=== PATIENT | female | born 2000 | race Caucasian/White ===

== ENCOUNTER 2022-05-27 07:55 | Outpatient (CLI) | payer BC, MEDICAID, SELFPAY ==
--- NOTE | 2022-05-27 08:04 | US_ITS ---
WS: [id number] EARLY OBSTETRICAL ULTRASOUND (<14 WEEKS). HISTORY: UNSURE OF LMP COMPARISON: None available. Single intrauterine gestational sac is identified. Cardiac activity at 157 BPM. Hood-rump length giancarlo sures 3.8 cm which corresponds to a gestation of 10w5d. Normal-appearing yolk sac and amnion demonstr ated. No subchorionic hemorrhage. No free fluid. Normal size ovaries with no mass. Small RIGHT ovarian follicle. Cervix is closed measuring 3.1 cm in length. US/US OB <= 14 weeks fetus [id number] IMPRESSION: 1. Single intrauterine gestation of 10 weeks 5 days with an EDC of 12/18/2022. 2. Normal cardiac activity.
== END 2022-05-27 07:56 | disposition home or self-care (01) ==
LOC: RAD 07:55
PROVIDERS: PCP Family Medicine; Visit Provider Family Medicine
DX: Z36.87 Encounter for antenatal screening for uncertain dates (principal)
CPT/HCPCS: 76801

== ENCOUNTER 2022-10-14 10:42 | Outpatient (CLI) | payer BC, MEDICAID, SELFPAY ==
[2022-10-14 10:42] VITALS: BMI 38.0
[2022-10-14 11:01] VITALS: BP 121/56; PULSE 67
[2022-10-14 11:15] VITALS: RESP 18; TEMP 36.6
--- NOTE | 2022-10-14 11:25 | US_ITS ---
WS: [id number] BIOPHYSICAL PROFILE HISTORY: Non reactive NST COMPARISON: 07/23/2022 Cardiac activity: 141 bpm. Cervix: Obscured by the head. Placenta: Anterior, no previa or abruption. Placenta grade: 1 Parameters are as follows: Breathin Movement: 2 Tone: 2 Fluid volume: 2 Amniotic fluid: Deepest single vertical pocket: 3.1 cm. US/US OB [place] NST [address]35 IMPRESSION: 1. Biophysical profile score: 8/8. 2. Normal amniotic fluid.
[2022-10-14 11:28] VITALS: BP 109/58; PULSE 73
[2022-10-14 11:43] VITALS: BP 107/58; PULSE 64
[2022-10-14 11:58] VITALS: BP 113/58; PULSE 77
[2022-10-14 12:13] VITALS: BP 116/64; PULSE 75
== END 2022-10-14 12:20 | disposition home or self-care (01) ==
LOC: OPOB 10:49 → OBGYN 10:50
PROVIDERS: PCP Family Medicine; Visit Provider Family Medicine
DX: O26.899 Other specified pregnancy related conditions, unspecified trimester (principal); Z3A.00 Weeks of gestation of pregnancy not specified
CPT/HCPCS: 59025; 76819

== ENCOUNTER 2022-11-11 12:09 | Outpatient (CLI) | payer BC, MEDICAID, SELFPAY ==
[2022-11-11 12:09] VITALS: BMI 38.9
[2022-11-11 12:22] VITALS: BP 135/65; PULSE 90
[2022-11-11 12:37] VITALS: BP 141/68; PULSE 87
[2022-11-11 12:57] VITALS: BP 129/60; PULSE 80
== END 2022-11-11 13:10 | disposition home or self-care (01) ==
LOC: OPOB 12:15 → OBGYN 12:16
PROVIDERS: PCP Family Medicine; Visit Provider Family Medicine
DX: O36.8390 Maternal care for abnormalities of the fetal heart rate or rhythm, unspecified trimester, not applicable or unspecified (principal); Z3A.00 Weeks of gestation of pregnancy not specified
CPT/HCPCS: 59025; 99211

== ENCOUNTER 2022-12-11 12:14 | Inpatient (IN) | payer BC, MEDICAID, SELFPAY ==
[2022-11-11 12:19] VITALS: RESP 18
[2022-12-11] VITALS (71 sets, daily range): BP systolic 103–159; BP diastolic 55–121; PULSE 67–104; RESP 16; TEMP 36.6–36.9; O2SAT 99–100; BMI 39.4
[2022-12-11] MEDS: oxytocin 30 UNIT/500 ML BAG IV (10:44)
[2022-12-11] MEDS: dextrose 5%-lactated ringers 1,000 ML 125 ML IV ×2 (10:44→23:44)
[2022-12-11 10:54] LABS: Amphetamines Screen Urine Negative (Negative); Cocaine Screen Urine Negative (Negative); Opiate Screen Urine Negative (Negative); PCP Screen Urine Negative (Negative); THC Screen Urine Positive (Negative)
[2022-12-11 10:55] LABS: Barbiturates Screen Urine Negative (Negative); Benzodiazepines Screen Urine Negative (Negative)
[2022-12-11 11:02] LABS: Basophils % 0.5 %; Eosinophils % 0.2 %; Hematocrit 35.3 % (37.0-47.0); Hemoglobin 11.4 g/dL (11.5-15.3); Lymphocytes # 1.6 10^3/uL (0.8-4.8); Lymphocytes % 17.7 %; Mean Corpuscular HGB Conc 32.3 g/dL (30.0-36.0); Mean Corpuscular Hemoglobin 27.7 pg (28.0-34.0); Mean Corpuscular Volume 85.7 fl (81-99); Mean Platelet Volume 10.5 fL (7.4-10.4); Monocytes # 0.9 10^3/uL (0.2-0.9); Monocytes % 9.9 %; Neutrophils # 6.13 10^3/uL (1.8-7.7); Neutrophils % 70.1 %; Nucleated Red Blood Cells % 0 %; Platelet Count 290 10^3/cmm (130-400); Red Blood Count 4.12 10^6/uL (4.1-5.3); Red Cell Distribution Width 13.3 % (12.1-15.1); White Blood Count 8.8 10^3/uL (4.0-10.0)
[2022-12-11] MEDS: lactated ringers 1,000 ML 999 ML IV ×2 (16:37→17:39)
--- NOTE | 2022-12-11 17:03 | PM.OPHPUD ---
Labor & Delivery H&P Update Date of Procedure: December 11, 2022 Date H&P Performed: 12/09/22 Admission Diagnosis: at 39w 6 days gestation Elective Induction
--- NOTE | 2022-12-11 17:04 | PM.DELIVERY ---
Delivery Note: Date of delivery: December 11, 2022 Pre-Delivery Course: The patient is up to 20 units of Pitocin and feeling the contractions. Sterile vaginal exam was performed and she was found to be 2 to 3 cm good 60% effaced and -3 station but the infant's head was very well applied. Rupture membranes was performed using an amnio hook and a scant amount of clear fluid was noted. Patient tolerated the procedure well. heart tones are 130s moderate variability positive accelerations no decelerations History History History 0 Term Miscarriages/Ectopic Living Children Coding Level of Care Code Acute Code for Chg Fwd
--- NOTE | 2022-12-11 17:19 | ANES.PREANE2 ---
Pre-Anesthetic Assessment Height/Weight: Height 1.73 m Weight 117.48 kg Temp Pulse Resp BP O2 Del Method 97.9 F 74 16 124/82 12/11/22 14:48 12/11/22 17:16 12/11/22 16:00 12/11/22 17:16 12/11/22 09:25 Familial anesthetic complications: No history of anesthesia Was Beta Aruna taken within 24 hours: N/A Was Clonidine taken within 24 hours: N/A Social No alcohol and No tobacco (Marijuana) Exam alert, oriented x 3, clear to auscultation bilaterally and regular rate & rhythm Airway Submandibular: within normal limits Cervical ROM: within normal limits Mallampati: Class II Dentition: full History/ROS No significant history except as noted and No significant complaints Pulmonary None reported CV/HEM Atrial Fibrillation (Intermittent) None reported Hepatic None reported GI Gastroesophageal Reflux Disease Metabolic Morbid Obesity [facility] Lower Back Pain Neuropsych Anxiety and Depression Anesthetic Plan ASA status: 2 Anesthesia: Anesthesia Evaluation and Regional (specify below) (Epidural) Medications/Allergies Home Medications Medication Instructions Recorded Confirmed Last Taken Type 1 tab PO DAILY 10/14/22 11/11/22 11/10/22 History Allergies Allergy/AdvReac Type Severity Reaction Status Date / Time pineapple Allergy ALGY-Swell Verified 10/14/22 11:41 Lip/Tongue/Throat Current Medications Generic Name Dose Route Start Last Admin Trade Name Freq PRN Reason Stop Dose Admin Oxytocin 30 unit in 500 mls @ 1 mls/hr 12/11/22 10:00 12/11/22 13:15 Pitocin IV 20 milliunit/min .Q24H MAGGIE 20 mls/hr Titration Protocol 1 MILLIUNIT/MIN Dextrose/Lactated Ringer's 1,000 mls @ 125 mls/hr 12/11/22 10:00 12/11/22 16:41 Dextrose 5%-Lactated Ringers IV 0 mls/hr .Q8H MAGGIE Infusion Lactated Ringer's 1,000 mls @ 999 mls/hr 12/11/22 16:33 12/11/22 16:37 Lactated Ringers IV 999 mls/hr .Q1H1M PRN Administration See label comments PFSH Anesthesia Family History Grandmother Cancer Family/Other Psychiatric illness Whole family per patient Denies family history of Diabetes CAD (coronary artery disease) Clotting disorder Dementia Hyperlipidemia Chronic kidney disease (CKD) Suicide Anesthesia complication Bleeding disorder Family history of premature coronary artery disease Lung disease Hypertension Stroke Social History (Updated 12/21/20 @ 09:35 by Keshia Burnette RN) Smoking and tobacco status: current every day smoker cigarettes [ Other cigarette details: 6 cigarettes/day ] Alcohol intake: current Alcohol intake frequency: holidays/special occasions only Alcohol type: beer, wine and hard liquor Other details last substance use: 2019- last smoked marijuana Female Reproductive History : 1 Data Anesthesia 12/11/22 10:00 Short CBC 12/11/22 Range/Units 10:00 WBC 8.8 (4.0-10.0) 10^3/uL Hgb 11.4 L (11.5-15.3) g/dL Hct 35.3 L (37.0-47.0) % MCV 85.7 (81-99) fl Plt Count 290 (130-400) 10^3/cmm Neut % (Auto) 70.1 % Neut # (Auto) 6.13 (1.8-7.7) 10^3/uL Cardiac Studies: No Data to Display
--- NOTE | 2022-12-11 18:07 | ANES.PROC ---
Anesthesia Procedures Procedure/Date: 12/11/22 Epidural: Time Out Performed: Yes Consents Signed: Procedure Consent and NPO Consent Consent: requested by attending/covering physician, from patient, risks and benefits reviewed and patient agrees to proceed Lumbar Level: L3-L4 Epidural position: sitting Epidural procedure: sterile prep of area (betadine), 1% lidocaine to numb the area (3 mLs), neg for paresthesia, test dose given, 1.5% xylocaine 1:200k epi (3 mLs/ 2 mLs), 0.2% Ropivacaine bolus ml (5 mLs), placed PCEA, no systemic response, sterile dressing applied, L.U.D. no apparent complications and 0.2% Ropiavacaine @ mls/hr (13) Additional Comments: LUZMARIA at 7cm, catheter placed at 12cm. Attempt x 1
[2022-12-12] VITALS (26 sets, daily range): BP systolic 111–152; BP diastolic 55–87; PULSE 75–106; RESP 16–18; TEMP 36.7; O2SAT 97–98
[2022-12-12] MEDS: ondansetron 2 mg/ML SDV 2 mL 4 MG IVP (01:12)
[2022-12-12] MEDS: miSOPROStol 200 mcg Tablet 800 MCG PR (02:02)
[2022-12-12] MEDS: oxytocin 30 UNIT/500 ML BAG 999 UNIT IV (02:22)
--- NOTE | 2022-12-12 02:23 | PM.DELIVERY ---
Delivery Note: Date of delivery: December 12, 2022 Procedure: Normal spontaneous vaginal delivery Estimated blood loss (mL): 350 Pre-Delivery Course: The patient had routine care at [facility]. She was blood type O+, antibody negative, hepatitis B nonreactive hepatitis C nonreactive, HIV nonreactive, rubella immune, GC chlamydia negative, RPR nonreactive, urine drug screen positive for marijuana, she failed her 1 hour glucose tolerance test but passed the 3-hour glucose tolerance test, she was GBS negative. Delivery: This is a 22-year-old G1, P0 who was admitted for an elective induction at 39 weeks 6 days gestation. Her cervix was favorable for induction and she was started on Pitocin. She underwent artificial rupture of membranes with clear fluid. Rupture of membranes was approximately 9 hours prior to delivery. She received an epidural for pain management. She had a normal spontaneous vaginal delivery of a viable male infant weight 3430 g, 7 pounds 9 ounces, Apgars 7 and 9 over an intact perineum. The was suctioned at delivery and placed on the mother's chest. There was a loose nuchal cord that was reduced upon delivery. The cord was clamped and cut. The placenta was delivered grossly intact and normal to inspection. Her bleeding was brisk but responded well to Pitocin, fundal massage, and rectal Cytotec. She had bilateral vaginal lacerations that were first-degree. The right side required suturing for hemostasis. Mother and infant were doing well after delivery. History History History 0 Term Miscarriages/Ectopic Living Children A&P Assessment and plan (1) Normal spontaneous vaginal delivery: (2) Marijuana use during : Coding Level of Care Code Acute Code for Chg Fwd Diagnoses Normal spontaneous vaginal delivery O80 Marijuana use during O99.320; F12.90
[2022-12-12] MEDS: prenatal vitamin Capsule 1 CAP PO (08:34)
[2022-12-12] MEDS: ibuprofen 800 mg tablet PO ×2 (08:34→15:32)
[2022-12-12] MEDS: lanolin oint 7 gm 1 APPLIC TOPICAL (08:34)
[2022-12-12] MEDS: docusate sodium 100 mg Capsule PO ×2 (08:34→18:09)
[2022-12-12] MEDS: benzocaine-menthol 78 gm Canister 1 SPRAY TOPICAL (08:35)
[2022-12-12 15:11] LABS: Hematocrit 32.9 % (37.0-47.0); Mean Corpuscular HGB Conc 30.4 g/dL (30.0-36.0); Mean Corpuscular Hemoglobin 27.8 pg (28.0-34.0); Mean Corpuscular Volume 91.4 fl (81-99); Mean Platelet Volume 11.3 fL (7.4-10.4); Platelet Count 191 10^3/cmm (130-400); Red Cell Distribution Width 13.7 % (12.1-15.1); White Blood Count 15.4 10^3/uL (4.0-10.0)
[2022-12-13 04:50] VITALS: BP 146/76; PULSE 80; RESP 16
--- NOTE | 2022-12-13 08:03 | ANE.PACU2 ---
Inpatient post-anesthesia follow up: Airway intact: Yes Vital signs: Temperature 98.1 F Pulse Rate 80 Respiratory Rate 16 Blood Pressure 146/76 Pulse Oximetry 98 Oxygen Delivery Me thod Room Air Oxygen Flow Rate 10 Fraction of Inspir ed Oxygen Hydration adequate: Yes Nausea and vomiting: No Pain level: 1 Mental status: Baseline
[2022-12-13 10:20] VITALS: BP 143/67; PULSE 81; RESP 17
[2022-12-13] MEDS: docusate sodium 100 mg Capsule PO (11:59)
[2022-12-13] MEDS: prenatal vitamin Capsule 1 CAP PO (11:59)
[2022-12-13] MEDS: ibuprofen 800 mg tablet PO (11:59)
--- NOTE | 2022-12-13 12:43 | P.DS_ITS ---
Discharge Providers Date of Admission: 12/11/22 12:14 Date of Discharge: December 13, 2022 Attending Provider at Admission: Tina Leonard MD Attending Provider at Discharge: Tina Leonard MD Primary Care Provider: Tina Leonard MD Diagnoses at Discharge Discharge Diagnosis (1) Normal spontaneous vaginal delivery: Status: Acute (2) Marijuana use during : Status: Acute Reason for Visit Reason for Visit: induction Hospital Course Hospital Course This is a 22-year G1 now P1 who was admitted for an elective induction at 39 weeks 6 days gestation. She had a normal spontaneous vaginal delivery of a viable male . On day #1 she was ambulating, tolerating a regular diet, had essentially no pain, reported average vaginal bleeding and was comfortable with discharge home. Physical Exam Narrative: Alert and oriented, sitting up in bed, heart regular rate and rhythm, lungs clear to auscultation bilaterally, abdomen is soft and nontender, fundus is firm and low in the pelvis, extremities have trace edema but no calf tenderness. Urinary Catheter Management: Diallo Latex: Cath Placed During This Visit: yes, but has since been removed by the nurse Reason for Continuing Indwelling Catheter: Decision to DC Catheter Urinary Catheter Date of Insertion: 12/11/22 Urinary Catheter Time of Insertion: 18:35 Date Urinary Catheter Removed: 12/12/22 Time Urinary Catheter Discontinued: 01:15 Discharge Data Studies Completed and Pending Laboratory Results WBC 15.4 10^3/uL (4.0-10.0) H 12/12/22 15:00 RBC 3.60 10^6/uL (4.1-5.3) L 12/12/22 15:00 Hgb 10.0 g/dL (11.5-15.3) L 12/12/22 15:00 Hct 32.9 % (37.0-47.0) L 12/12/22 15:00 MCV 91.4 fl (81-99) D 12/12/22 15:00 MCH 27.8 pg (28.0-34.0) L 12/12/22 15:00 MCHC 30.4 g/dL (30.0-36.0) D 12/12/22 15:00 RDW 13.7 % (12.1-15.1) 12/12/22 15:00 Plt Count 191 10^3/cmm (130-400) D 12/12/22 15:00 MPV 11.3 fL (7.4-10.4) H 12/12/22 15:00 Neut % (Auto) 70.1 % 12/11/22 10:00 Lymph % (Auto) 17.7 % 12/11/22 10:00 Becker % (Auto) 9.9 % 12/11/22 10:00 Eos % (Auto) 0.2 % 12/11/22 10:00 Baso % (Auto) 0.5 % 12/11/22 10:00 Neut # (Auto) 6.13 10^3/uL (1.8-7.7) 12/11/22 10:00 Lymph # (Auto) 1.6 10^3/uL (0.8-4.8) 12/11/22 10:00 Becker # (Auto) 0.9 10^3/uL (0.2-0.9) 12/11/22 10:00 Eos # (Auto) 0.0 10^3/uL (0.0-0.8) 12/11/22 10:00 Baso # (Auto) 0.0 10^3/uL (0.0-0.1) 12/11/22 10:00 Nucleated RBC % (auto) 0 % 12/11/22 10:00 Nucleated RBCs # 0.0 /100WBC 12/11/22 10:00 Urine Opiates Screen Negative ng/mL (Negative) 12/11/22 10:00 Ur Barbiturates Screen Negative ng/mL (Negative) 12/11/22 10:00 Ur Phencyclidine Scrn Negative ng/mL (Negative) 12/11/22 10:00 Ur Amphetamines Screen Negative ng/mL (Negative) 12/11/22 10:00 U Benzodiazepines Scrn Negative ng/mL (Negative) 12/11/22 10:00 Urine Cocaine Screen Negative ng/mL (Negative) 12/11/22 10:00 U Marijuana (THC) Screen Positive ng/mL (Negative) H 12/11/22 10:00 Vitals Last Vital Signs Temp 98.1 F 12/12/22 20:15 Pulse 81 12/13/22 10:20 Resp 17 12/13/22 10:20 BP 143/67 12/13/22 10:20 Pulse Ox 98 12/12/22 10:19 O2 Del Method 12/12/22 10:19 O2 Flow Rate 10 12/12/22 01:49 Discharge Plan Discharge Patient Disposition: Home Condition: Stable Prescriptions: Continued tablet 1 tab PO DAILY Discharge Orders: Discharge Order (Routine); Ordered 12/13/22 Ordered By: Tina Leonard Referrals: Tina Leonard MD [Primary Care Provider] - 1 month Discharge Diet: Advance as tolerated Discharge Activity: Limit activity as instructed Patient Instructions: Opioid Safety Activity Restrictions/Additional Instructions: Nothing per vagina for 6 weeks Discharge Attestations Time Spent in Discharge Care*: less than 30 min Quality Metrics Clinical Quality Measures [ No reported AMI, CVA or VTE this stay] Coding Level of Care Code Acute Code for Chg Fwd Diagnoses Normal spontaneous vaginal delivery O80 Marijuana use during O99.320; F12.90
[2022-12-13 15:20] VITALS: BP 138/71; PULSE 83; RESP 17; TEMP 36.7
== END 2022-12-13 15:25 | disposition home or self-care (01) | DRG 806 ==
LOC: OPOB 12:14 → OBGYN 12:14
PROVIDERS: Admitting Provider Family Medicine; PCP Family Medicine; Visit Provider Family Medicine
DX: O69.2XX0 Labor and delivery complicated by other cord entanglement, with compression, not applicable or unspecified (principal); O99.324 Drug use complicating childbirth; Z37.0 Single live birth; O99.334 Smoking (tobacco) complicating childbirth; F17.210 Nicotine dependence, cigarettes, uncomplicated; F12.90 Cannabis use, unspecified, uncomplicated; O99.214 Obesity complicating childbirth; E66.01 Morbid (severe) obesity due to excess calories; O99.344 Other mental disorders complicating childbirth; O70.0 First degree perineal laceration during delivery; O75.89 Other specified complications of labor and delivery; Z3A.39 39 weeks gestation of pregnancy; I48.0 Paroxysmal atrial fibrillation; K21.9 Gastro-esophageal reflux disease without esophagitis; F41.9 Anxiety disorder, unspecified; F32.A Depression, unspecified
CPT/HCPCS: 36415; 51702; 59025; 59409; 80306; 85025; 85027; J2405; J2590; J2795; J7120; J7121